=== PATIENT | female | born 1980 | race Caucasian/White ===

== ENCOUNTER 2017-11-05 17:27 | Emergency (ER) | payer OTHER ==
[~2017-11-05] VITALS: Ht 175.3 cm; Wt 84.5 kg
[2017-11-05 17:29] VITALS: BP 176/105; PULSE 88; RESP 12; TEMP 98.6; O2SAT 98
--- NOTE | 2017-11-05 21:36 | PD ---
HPI Chief Complaint: Medical Clearance Time Seen by Provider: 21:19 Travel History International Travel<30 days: No Contact w/Intl Traveler<30days: No Traveled to known affect area: No History of Present Illness HPI 37-year-old female with history of multiple different myalgias, resents emergency department for evaluation. Patient states that she was seen pain management up in [place]. She moved down here and began seeing pain management here. On October 21 she was prescribed 120 oxycodone. These were gone by November 01. She states she realizes she has a problem and does not want to take the medication anymore. She states her last dose was 2 days ago and she feels agitated, restless, she is unable asleep, she states she has had diarrhea. She is concerned that she is withdrawing. Denies any chest or tightness. No difficulty breathing. She has no other symptoms to report. PFSH Past Medical History Arthritis: Yes Anxiety: Yes Depression: Yes Diminished Hearing: No Medical other: Yes (CP, ACID REFLUX ) ?: Not Past Surgical History Section: Yes (3X) Hysterectomy: Yes Tonsillectomy: Yes Other Surgery: Yes (PT STOMACH REMOVAL, BLOOD CLOT REMOVED FROM BLADDER) Social History Alcohol Use: No (RARE ) Tobacco Use: No Substance Use: No Allergies-Medications (Allergen,Severity, Reaction): Coded Allergies: Sulfa (Sulfonamide Antibiotics) (Verified Allergy, Intermediate, 11/05/17) Review of Systems Except as stated in HPI: all other systems reviewed are Neg Physical Exam Narrative GENERAL: Well-nourished female patient, in no acute distress. SKIN: Focused skin assessment warm/dry. HEAD: Atraumatic. Normocephalic. EYES: Pupils equal and round. No scleral icterus. No injection or drainage. ENT: No nasal bleeding or discharge. Mucous membranes pink and moist. NECK: Trachea midline. No JVD. CARDIOVASCULAR: Elevated rate and rhythm. No murmur appreciated. RESPIRATORY: No accessory muscle use. Clear to auscultation. Breath sounds equal bilaterally. GASTROINTESTINAL: Abdomen soft, non-tender, nondistended. Hepatic and splenic margins not palpable. MUSCULOSKELETAL: No obvious deformities. No clubbing. No cyanosis. No edema. NEUROLOGICAL: Awake and alert. No obvious cranial nerve deficits. Motor grossly within normal limits. Normal speech. Data Data Last Documented VS Vital Signs Date Time Temp Pulse Resp B/P (MAP) Pulse Ox O2 Delivery O2 Flow Rate FiO2 11/05/17 21:47 153/92 (112) 11/05/17 17:29 98.6 88 12 98 Orders Orders Clonidine (Catapres) (11/05/17 21:45) Ed Discharge Order (11/05/17 21:34) MDM Medical Decision Making Medical Screen Exam Complete: Yes Emergency Medical Condition: Yes Medical Record Reviewed: Yes Differential Diagnosis Opiate dependency versus opiate withdrawal versus mood disorder versus personality disorder Narrative Course 37 year old female presents to emergency department for evaluation of possible opiate withdrawal. Patient has been taking oxycodone, up to 12 a day. Her last tablet was 2 days ago. She appears without distress. She is slightly anxious. I discussed the patient with my attending physician who agrees giving her a dose of clonidine here may help with her symptoms but she needs to follow- up outpatient with detox facility. Patient is provided information on this. She'll be discharged at this time. Diagnosis Primary Impression: Opiate withdrawal Referrals: [facility] (Out patient) [facility] Patient Instructions: General Instructions, Opioid Withdrawal (ED) Additional Instructions: Follow-up with [facility] for detox Return immediately with any acute worsening symptoms Med/Other Pt SpecificInfo: No Change to Meds Disposition: 01 DISCHARGE HOME Condition: Stable Evangelina Henderson Nov 05, 2017 21:36
[2017-11-05] MEDS ORDERED: cloNIDine HCL 0.1 MG TAB PO ONE (21:45)
[2017-11-05 21:47] VITALS: BP 153/92
== END 2017-11-05 21:55 | disposition home or self-care (01) ==
LOC: NEPD 17:27
DX: F11.23 Opioid dependence with withdrawal (principal)
CPT/HCPCS: 99283